=== PATIENT | female | born 1965 | race Caucasian/White ===

== ENCOUNTER 2021-01-24 15:16 | Emergency (ER) | payer MEDICARE, SELFPAY ==
[2021-01-24 15:31] VITALS: BP 152/97; PULSE 108; RESP 16; TEMP 36.8; O2SAT 99
--- NOTE | 2021-01-24 16:32 | PC.NURSE ---
hypertrichologist in to do steri strips
--- NOTE | 2021-01-24 16:51 | ED.WOUNDLAC ---
HPI - Wound/Laceration General Chief Complaint: Wound/Laceration Stated Complaint: dog bite Source: patient and RN notes reviewed Mode of arrival: ambulatory History of Present Illness HPI narrative: This is a 55-year old lady that who presented herself to urgent care with a dog bite. According to patient she accidentally stepped on her dog's to and as a result he bit her twice. She is 2 large open areas 1 at the wrist and the other one in her mid arm and multiple small bites. She does complain of tenderness and pain to this bite areas. Patient is allergic to tetanus shot and will not be getting that today she was educated on signs and symptoms of lock jaw and informed her to proceed to the emergency department if she displays any of these signs. Patient is also afraid of needles and requested that we know the suture sites. There was no need for suturing. The patient denies SOB, CP, palpitation, extremity numbness, lightheadedness, dizziness, constipation, diarrhea, chills, or fever. Related Data Home Medications Medication Instructions Recorded Confirmed alprazolam 01/24/21 dextroamphetamine mg PO 01/24/21 escitalopram oxalate mg 01/24/21 famotidine 01/24/21 hydroxyzine HCl 01/24/21 montelukast mg 01/24/21 omeprazole 01/24/21 pramipexole mg 01/24/21 pregabalin 01/24/21 rizatriptan mg 01/24/21 trazodone 01/24/21 Allergies Allergy/AdvReac Type Severity Reaction Status Date / Time Tetanus Vaccines and Toxoid Allergy Mild Unverified 10/22/19 09:23 thimerosal Allergy Mild Unverified 10/22/19 09:23 Review of Systems Review of Systems: A 14 organ system Review of Systems was performed and pertinent positives included in the HPI, otherwise remaining ROS is negative. [facility] Family History Family History (Updated 01/24/21 @ 16:53 by PAWEL Marte) Other Family history non-contributory Exam Narrative: GENERAL: This is a well-nourished, well-developed patient, in no apparent distress. HEAD: normocephalic, atraumatic. EYES: PERRL. Sclera clear/white. Vision is grossly intact. EARS: External ears normal, auditory canals clear and without drainage, TMs normal without perforation. Hearing grossly intact. NOSE: External nose normal with no obvious nasal discharge, nares without redness, no rhinorrhea. THROAT: Mucous membranes moist, posterior pharynx clear. NECK: Neck supple, non-tender without lymphadenopathy, masses or thyromegaly. CARDIOVASCULAR: Regular rate and rhythm without murmurs, gallops, or rubs. RESPIRATORY: Clear to auscultation. Breath sounds equal bilaterally. No wheezes, rales, or rhonchi. GASTROINTESTINAL: Abdomen soft, non-tender, nondistended. Bowel sounds are active. No hepato-splenomegaly, or palpable masses. No guarding. SKIN: Left wrist and forearm with multiple dog punctures to being the longest one at the wrist approximately 2 cm and one in the forearm approximately 2 cm multiple small puncture wounds NEURO: awake, alert, and oriented to person, place and time. There were no obvious focal neurologic abnormalities. Steady gait EXTREMITIES: Normal range of motion. No edema. No calf tenderness. Negative Homans sign bilaterally. BACK: Nontender without deformity or crepitance. No flank tenderness. Course Course Emergency Course: 2 Steri-Strips placed on to longer lacerations site clean with normal saline wound engine cleaner and triple antibiotic ointment placed on small puncture wounds with 4 Band-Aids Vital Signs Vital signs: Vital Signs Temperature 98.3 F 01/24/21 15:31 Pulse Rate 108 H 01/24/21 15:31 Respiratory Rate 16 01/24/21 15:31 Blood Pressure 152/97 H 01/24/21 15:31 Pulse Oximetry 99 01/24/21 15:31 Temperature 98.3 F 01/24/21 15:31 Pulse Rate 108 H 01/24/21 15:31 Respiratory Rate 16 01/24/21 15:31 Blood Pressure 152/97 H 01/24/21 15:31 Pulse Oximetry 99 01/24/21 15:31 Procedures Laceration Laceration 1: Date: 01/24/21
== END 2021-01-24 16:55 | disposition home or self-care (01) ==
PROVIDERS: Emergency Provider Nurse Practitioner; PCP Nurse Practitioner Family
DX: S61.512A Laceration without foreign body of left wrist, initial encounter (principal); S51.812A Laceration without foreign body of left forearm, initial encounter; W54.0XXA Bitten by dog, initial encounter
CPT/HCPCS: 99213; G0463

== ENCOUNTER 2021-03-16 17:03 | Emergency (ER) | payer OTHER, SELFPAY ==
--- NOTE | ~2021-03-16 | XR_ITS ---
XR hand RT min 3V DATE: 03/16/2021 18:03 INDICATION: Dog bite at right fourth metacarpal/digit TECHNIQUE: 3 views COMPARISON: None FINDINGS: There is soft tissue swelling of the fourth digit particularly proximally. No radiopaque so ft tissue foreign body or fracture or dislocation is detected. There is polyarticular osteoarthritis including mild osteoarthritis at the first carpometacarpal join t, mild to moderate osteoarthritis at the first metacarpophalangeal joint and more prominent osteoart hritis at multiple interphalangeal joints. IMPRESSION: Soft tissue swelling of fourth digit Polyarticular osteoarthritis Reviewed, dictated and finalized at location A. [employer]PER[employer]
[2021-03-16 17:16] VITALS: BP 152/85; PULSE 106; RESP 16; TEMP 36.8; O2SAT 98
--- NOTE | 2021-03-16 17:47 | ED.ANIMALBIT ---
HPI - Animal Bite General Chief Complaint: Animal Bite Stated Complaint: Dog bite Source: patient Mode of arrival: ambulatory Limitations: no limitations History of Present Illness HPI narrative: 55-year-old female presented for complaint of animal bite to right hand, onset 2 days ago. She endorses now she has redness and swelling to the right hand, stating she sterilized a needle and punctured the right fourth digit, and was able to expel clear and white drainage. Endorses decreased range of motion to the right fourth digit. States she did clean the wounds at the onset with soap and water. She has applied Neosporin and nonadhesive gauze with Coban. States she has a tetanus allergy and declines booster. The dogs are her personal paths and are up-to-date on vaccinations, the incident was provoked. Related Data Home Medications Medication Instructions Recorded Confirmed alprazolam 01/24/21 dextroamphetamine mg PO 01/24/21 escitalopram oxalate mg 01/24/21 famotidine 01/24/21 hydroxyzine HCl 01/24/21 montelukast mg 01/24/21 omeprazole 01/24/21 pramipexole mg 01/24/21 pregabalin 01/24/21 rizatriptan mg 01/24/21 trazodone 01/24/21 Allergies Allergy/AdvReac Type Severity Reaction Status Date / Time Tetanus Vaccines and Toxoid Allergy Mild Unverified 10/22/19 09:23 thimerosal Allergy Mild Unverified 10/22/19 09:23 Review of Systems Review of Systems: CONSTITUTIONAL: Denies body aches, fever, chills, or sweats. EYES: Denies visual changes, redness, or discharge. ENT: Denies rhinorrhea, congestion, sore throat, or otalgia. CARDIOVASCULAR: Denies chest pain, palpitations, or edema. RESPIRATORY: Denies cough or dyspnea. GASTROINTESTINAL: Denies abdominal pain, nausea, vomiting, or diarrhea. GENITOURINARY: Denies dysuria or hematuria. SKIN: right hand wounds, swelling MUSCULOSKELETAL: Denies back pain, joint pain, or myalgia. NEUROLOGIC: Denies headache, numbness, tingling, or weakness. PSYCH: Denies depression or anxiety. [facility] Family History Family History Other Family history non-contributory Comments At time of signature, I have reviewed and agree with nursing past medical, surgical, social and family history unless otherwise noted. Please see nursing chart for further information. There is no relevant family history pertinent to the presenting complaint Exam Narrative: GENERAL: Well-appearing, well-nourished, and in no acute distress. HEAD: Normocephalic, atraumatic. EYES: PERRLA, conjunctivae clear, and EOMI. ENT: Mucous membranes moist. NECK: Supple. No lymphadenopathy CHEST: Clear to auscultation. No respiratory distress. HEART: Regular rate and rhythm. SKIN: Warm, dry. right hand medial aspect with 1cm linear well approximated laceration, palmar surface 4th digit between MCP and PIP approx 1cm superficial linear laceration approximated no active drainage, right 4th digit dorsal surface with 0.5cm puncture site between MCP and PIP; moderate erythema and swelling to right hand, no streaking, RPP, sensation intact, unable to flex 4th digit 2/2 swelling NEURO: Alert and oriented x3. PSYCH: Normal mood and affect Course Course Emergency Course: Patient is aware of diagnosis, understands and agrees to treatment plan. Anticipatory guidance given. Patient agrees to follow-up as directed and is aware of reasons to seek care at the emergency department. Portions of this record may have been created with voice recognition software Level of Care: Express Care Visit Vital Signs Vital signs: Vital Signs Temperature 98.3 F 03/16/21 17:16 Pulse Rate 106 H 03/16/21 17:16 Respiratory Rate 16 03/16/21 17:16 Blood Pressure 152/85 H 03/16/21 17:16 Pulse Oximetry 98 03/16/21 17:16 Temperature 98.3 F 03/16/21 17:16 Pulse Rate 106 H 03/16/21 17:16 Respiratory Rate 16 03/16/21 17:16 Blood Pressure 152/85 H 0
== END 2021-03-16 19:34 | disposition home or self-care (01) ==
PROVIDERS: Emergency Provider Nurse Practitioner Family
DX: L08.9 Local infection of the skin and subcutaneous tissue, unspecified (principal); S61.411A Laceration without foreign body of right hand, initial encounter; S61.214A Laceration without foreign body of right ring finger without damage to nail, initial encounter; W54.0XXA Bitten by dog, initial encounter
CPT/HCPCS: 73130; 99213; G0463

== ENCOUNTER 2021-04-12 18:56 | Emergency (ER) | payer OTHER, SELFPAY ==
[2021-04-12 19:05] VITALS: BP 145/72; PULSE 100; RESP 16; TEMP 36.6; O2SAT 96
--- NOTE | 2021-04-12 19:13 | ED.ABDPAIN ---
HPI - Abdominal Pain General Chief Complaint: Nausea/Vomiting/Diarrhea Stated Complaint: diarrhea/stomach pain Time Seen by Provider: 04/12/21 19:13 Source: patient, RN notes reviewed and old records reviewed Mode of arrival: ambulatory Limitations: no limitations History of Present Illness HPI narrative: 55-year-old female presents to the [facility] with 1 week of abdominal cramping and diarrhea that she states is been getting better. Has been taking probiotics, Imodium, omeprazole. Patient states that she wanted a second opinion. Has noticed history of diverticulitis. Patient reports a history of IBS. MD elicited complaint: abdominal pain Related Data Home Medications Medication Instructions Recorded Confirmed alprazolam 01/24/21 dextroamphetamine mg PO 01/24/21 escitalopram oxalate mg 01/24/21 famotidine 01/24/21 hydroxyzine HCl 01/24/21 montelukast mg 01/24/21 omeprazole 01/24/21 pramipexole mg 01/24/21 pregabalin 01/24/21 rizatriptan mg 01/24/21 trazodone 01/24/21 Allergies Allergy/AdvReac Type Severity Reaction Status Date / Time Tetanus Vaccines and Toxoid Allergy Mild Other Unverified 04/12/21 19:13 thimerosal Allergy Mild Other Unverified 04/12/21 19:13 Review of Systems Review of Systems: All systems reviewed & are unremarkable except as noted in HPI and below Constitutional: Constitutional: Reports no additional constitutional complaints, Denies body ache(s), Denies chills and Denies fever(s) Eyes: Eyes: Reports no additional eye complaints ENT: Reports system reviewed and no additional complaints, except as documented and Denies sore throat Cardiovascular: Cardiovascular: Reports no additional cardiovascular complaints, Denies chest pain and Denies dyspnea Respiratory: Respiratory: Reports no additional respiratory complaints, Denies cough and Denies dyspnea Gastrointestinal: Gastrointestinal: Reports as per HPI, Reports abdominal pain (Cramping, generalized), Reports bloating, Reports diarrhea, Denies nausea and Denies vomiting Genitourinary: Genitourinary: Reports no additional female genitourinary complaints Musculoskeletal: Musculoskeletal: Reports no additional musculoskeletal complaints Integumentary/Breasts: Skin/Breast: Reports system reviewed and no additional complaints, except as docu Neurologic: Reports system reviewed and no additional complaints, except as documented Psychiatric: Psychiatric: Reports no additional psychiatric complaints Allergic/Immunologic: Allergic/Immunologic: Reports no additional allergic/immunologic complaints PMFSH Family History Family History Other Family history non-contributory Comments At the time of my signature, I reviewed and agree with the nursing past medical, surgical, social, and family history. There is no relevant family history pertinent to the patient complaint. Exam Const: General: cooperative, healthy appearing, comfortable, no acute distress, well developed and alert Nutritional Appearance: well nourished Orientation/consciousness: patient oriented x3 Limitations: no limitations HENMT: Head: normal to inspection Ears: external ears normal Eyes: Pupils: Equal, round and reactive pupils present Neck: Neck: normal visual inspection, no lymphadenopathy and no meningeal signs Chest: Chest palpation & inspection: normal inspection of the chest Resp: Effort & Inspection: normal respiratory effort, able to speak in complete sentences and no use of accessory muscles Auscultation: clear to auscultation bilaterally Cardio: Rate: regular rate Rhythm: regular rhythm GI: GI Palp: Yes Soft to palpation, No Tenderness to palpation present (GI), No Guarding due to palpation present (GI) and No Rigid due to palpation Auscultation: Hyperactive bowel sounds present Other: Palpation of the abdomen does not appear to be an acute abdomen. Able to palpate through the
== END 2021-04-12 19:35 | disposition home or self-care (01) ==
PROVIDERS: Emergency Provider Nurse Practitioner
DX: K52.9 Noninfective gastroenteritis and colitis, unspecified (principal); K21.9 Gastro-esophageal reflux disease without esophagitis; M35.9 Systemic involvement of connective tissue, unspecified
CPT/HCPCS: 99211; G0463

== ENCOUNTER 2021-11-17 19:17 | Emergency (ER) | payer OTHER, MEDICAID, SELFPAY ==
--- NOTE | ~2021-11-17 | XR_ITS ---
EXAM: XR foot LT min 3V, XR foot RT min 3V DATE: 11/17/2021 19:52 HISTORY: STUBBED TOES, BILATERALLY FOOT PAIN . COMPARISON: None available. FINDINGS: Decreased mineralization. No fracture or dislocation. No lytic or blastic lesion. Moderate left hallux valgus. Mild degenerative change at the bilateral first MTP joints and the midfoot joint s bilaterally. Bilateral Achilles and plantar enthesopathy. No erosion or periosteal change. Soft tis sues within normal limits. IMPRESSION: No acute osseous finding in the left or right feet. Reviewed, dictated and finalized at location K. IMPRESSION: No acute osseous finding in the left or right feet.
[2021-11-17 19:34] VITALS: BP 140/69; PULSE 113; RESP 16; TEMP 36.6; O2SAT 100
--- NOTE | 2021-11-17 19:48 | ED.GENADULT ---
HPI - General Adult General Chief complaint: Extremity Problem,Nontraumatic Stated complaint: pain in toes Source: patient Mode of arrival: ambulatory Limitations: no limitations History of Present Illness HPI narrative: Patient presents for evaluation of pain in bilateral feet. She states symptoms started at the end of this week. She denies any recent trauma to the area. She indicates she has underlying fibromyalgia, chronic fatigue syndrome, erosive arthritis. She has already had x-rays of her hands and feet in the past that confirmed erosive arthritis. She takes Lyrica on a regular basis. She took some [id number] pain reliever earlier today which seemed to help. She believes a second digit of her left foot does not look like its normal alignment when compared with the other digits of that foot. She states that pain is worse when standing and walking. She rates the pain 6 out of 10 in severity. At rest she has minimal pain. She has chronic numbness and tingling in her bilateral feet. She is not diabetic to her knowledge. Related Data Home Medications Medication Instructions Recorded Confirmed alprazolam 0.5 mg tablet 0.5 mg PO DIRECTED 01/24/21 11/17/21 dextroamphetamine sulfate 15 mg 15 mg PO DAILY 01/24/21 11/17/21 capsule,extended release escitalopram oxalate 10 mg tablet 10 mg PO DAILY 01/24/21 11/17/21 famotidine 20 mg tablet 20 mg PO DAILY 01/24/21 11/17/21 hydroxyzine HCl 50 mg tablet 50 mg PO DAILY 01/24/21 11/17/21 montelukast 10 mg tablet 10 mg PO DAILY 01/24/21 11/17/21 omeprazole 20 mg capsule,delayed 20 mg PO DAILY 01/24/21 11/17/21 release pramipexole 1 mg tablet 1 mg PO DAILY 01/24/21 11/17/21 pregabalin 150 mg capsule 150 mg PO DAILY 01/24/21 11/17/21 rizatriptan 5 mg tablet 5 mg PO DAILY 01/24/21 11/17/21 trazodone 50 mg tablet 50 mg PO DAILY 01/24/21 11/17/21 fluticasone furoate 200 1 inh inhalation DAILY 11/17/21 11/17/21 mcg-vilanterol 25 mcg/dose inhalation powder (Breo Ellipta) phentermine 37.5 mg tablet 37.5 mg PO DAILY 11/17/21 11/17/21 prednisone 10 mg tablet 10 mg PO DAILY 11/17/21 11/17/21 valacyclovir 1 gram tablet 1 mg PO DAILY 11/17/21 11/17/21 Allergies Allergy/AdvReac Type Severity Reaction Status Date / Time Tetanus Vaccines and Toxoid Allergy Mild Other Unverified 11/17/21 19:29 thimerosal Allergy Mild Other Unverified 11/17/21 19:29 Review of Systems Review of Systems: CONSTITUTIONAL: Denies fever, chills, or sweats. EYES: Denies visual changes, redness, or discharge. ENT: Denies rhinorrhea, congestion, sore throat, or otalgia. CARDIOVASCULAR: Denies chest pain, palpitations, or edema. RESPIRATORY: Denies cough or dyspnea. GASTROINTESTINAL: Denies abdominal pain, nausea, vomiting, or diarrhea. GENITOURINARY: Denies dysuria or hematuria. SKIN: Reports lesions to extremities x4. MUSCULOSKELETAL: Reports bilateral foot pain. NEUROLOGIC: Reports numbness and feet. PSYCHIATRIC: Denies anxiety or depression. [facility] Past Medical History Medical History (Updated 11/17/21 @ 20:14 by HERBERT Frederick, ) Asthma Chronic fatigue syndrome Erosive (osteo)arthritis Fibromyalgia Surgical History Surgical History History of nasal septoplasty Family History Family History Mother Family history non-contributory Social History Social History Smoking status: Never smoker Substance use: never Gender identity (if verbalized by the patient): Female Sexual Orientation (if Verbalized by the Patient): Straight or Heterosexual Spiritual care concerns: No Exam Narrative: GENERAL: Well-appearing, well-nourished, and in no acute distress. HEAD: Normocephalic, atraumatic. EYES: PERRLA and EOMI. ENT: Nares clear, no rhinorrhea or epistaxis. Mucous membranes moist. Oropharynx w
== END 2021-11-17 21:04 | disposition home or self-care (01) ==
PROVIDERS: Emergency Provider Nurse Practitioner
DX: M25.572 Pain in left ankle and joints of left foot (principal); M25.571 Pain in right ankle and joints of right foot; M15.4 Erosive (osteo)arthritis; J45.909 Unspecified asthma, uncomplicated; M79.7 Fibromyalgia; G93.32 Myalgic encephalomyelitis/chronic fatigue syndrome
CPT/HCPCS: 73630; 99214; G0463

== ENCOUNTER 2022-02-03 18:41 | Emergency (ER) | payer OTHER, MEDICAID, SELFPAY ==
--- NOTE | 2022-02-03 18:45 | ED.URI ---
HPI - URI/Sore Throat General Chief Complaint: Upper Respiratory Infection Stated Complaint: CONGESTION/COUGH/HEADACHE Time Seen by Provider: 02/03/22 18:44 Source: patient Mode of arrival: ambulatory Limitations: no limitations History of Present Illness HPI Narrative: Ms. Chamberlain is a 56-year-old female patient presenting to clinic today with complaints of cough, congestion, and headache x1 month. She reports no fever or chills. Reports that she has ear pain occasional productive cough. No known exposure to anybody with COVID, flu, or strep. MD elicited complaint: sore throat and nasal congestion Related Data Home Medications Medication Instructions Recorded Confirmed alprazolam 0.5 mg tablet 0.5 mg PO DIRECTED 01/24/21 11/17/21 dextroamphetamine sulfate 15 mg 15 mg PO DAILY 01/24/21 02/03/22 capsule,extended release escitalopram oxalate 10 mg tablet 10 mg PO DAILY 01/24/21 02/03/22 famotidine 20 mg tablet 20 mg PO DAILY 01/24/21 11/17/21 hydroxyzine HCl 50 mg tablet 50 mg PO DAILY 01/24/21 02/03/22 montelukast 10 mg tablet 10 mg PO DAILY 01/24/21 02/03/22 omeprazole 20 mg capsule,delayed 20 mg PO DAILY 01/24/21 02/03/22 release pramipexole 1 mg tablet 1 mg PO DAILY 01/24/21 02/03/22 pregabalin 150 mg capsule 150 mg PO DAILY 01/24/21 02/03/22 rizatriptan 5 mg tablet 5 mg PO DAILY 01/24/21 02/03/22 trazodone 50 mg tablet 50 mg PO DAILY 01/24/21 02/03/22 fluticasone furoate 200 1 inh inhalation DAILY 11/17/21 02/03/22 mcg-vilanterol 25 mcg/dose inhalation powder (Breo Ellipta) phentermine 37.5 mg tablet 37.5 mg PO DAILY 11/17/21 11/17/21 prednisone 10 mg tablet 10 mg PO DAILY 11/17/21 11/17/21 valacyclovir 1 gram tablet 1 mg PO DAILY 11/17/21 11/17/21 albuterol sulfate 90 mcg/actuation inhalation 02/03/22 aerosol inhaler fluticasone propionate 50 intranasal 02/03/22 mcg/actuation nasal spray,suspension folic acid 1 mg tablet 02/03/22 levalbuterol tartrate 45 inhalation 02/03/22 mcg/actuation aerosol inhaler levocetirizine 5 mg tablet mg 02/03/22 meloxicam 15 mg tablet mg 02/03/22 methotrexate sodium 2.5 mg tablet mg 02/03/22 Allergies Allergy/AdvReac Type Severity Reaction Status Date / Time Tetanus Vaccines and Toxoid Allergy Mild Other Verified 02/03/22 19:02 thimerosal Allergy Mild Other Verified 02/03/22 19:02 Review of Systems Review of Systems: Pertinent positives per HPI. Patient denies any fever, chills, rash, visual changes, dizziness, shortness of breath, chest pain, palpitations, nausea, vomiting, diarrhea, constipation, abdominal pain, or any urinary issues. [facility] Past Medical History Medical History Asthma Chronic fatigue syndrome Erosive (osteo)arthritis Fibromyalgia Surgical History Surgical History History of nasal septoplasty Family History Family History Mother Family history non-contributory Social History Social History Smoking status: Never smoker Substance use: never Gender identity (if verbalized by the patient): Female Sexual Orientation (if Verbalized by the Patient): Straight or Heterosexual Spiritual care concerns: No Comments At the time of my signature, I reviewed and agree with the nursing past medical, surgical, social, and family history. There is no relevant family history pertinent to the patient complaint. Exam Narrative: General: Well-developed, overweight, in no apparent distress Head: Normocephalic, atraumatic Eyes: Pupils equally round and reactive to light bilaterally, EOM intact, sclera and conjunctive clear, no discharge, lids normal Ears: TMs intact and clear, ear canals clear, no drainage, grossly hearing normal. Nose: Nares patent, green nasal discharge, moderate to se
[2022-02-03 19:05] VITALS: BP 111/91; PULSE 109; RESP 16; TEMP 37.6; O2SAT 96
== END 2022-02-03 19:35 | disposition home or self-care (01) ==
PROVIDERS: Emergency Provider Nurse Practitioner Family
DX: J01.90 Acute sinusitis, unspecified (principal); J45.909 Unspecified asthma, uncomplicated; M19.90 Unspecified osteoarthritis, unspecified site; M79.7 Fibromyalgia
CPT/HCPCS: 99213; G0463